=== PATIENT | female | born 1950 | race Caucasian/White ===

== ENCOUNTER 2021-10-12 10:37 | Inpatient (IN) ==
[2021-10-12] MEDS ORDERED: IOPAMIDOL 100 ML BOTTLE IV ONE (10:38)
[2021-10-12] MEDS ORDERED: ASPIRIN 81 MG TAB.CHEW CHEWED ONE (11:14)
--- NOTE | 2021-10-12 11:21 | Emergency Department Note ---
Weakness HPI General Chief complaint: Weakness Stated complaint: Pneumonia Time Seen by Provider: 10/12/21 10:59 Source: patient Mode of arrival: wheelchair History of Present Illness HPI Narrative: 71-year-old female, smoker although she says she quit 1 week ago, PMH of COPD, [place] x2 with the stent placement about 4 to 5 years ago, presents with weakness, shortness of breath, cough, increased sweating with decreased appetite for about a week. Patient says that she also had chest pain last night but do not have pain right now. Patient was seen at outpatient clinic yesterday and was diagnosed to have pneumonia and she was given two antibiotics but without much improvement. EKG showed ST elevations in 2 3 aVF with Q waves EKG read it as old however communications director Dr. Alcantara was consulted for looked at the EKG and advised to wait for troponin. Related Data Home Medications Medication Instructions Recorded Confirmed aspirin 81 mg tablet,delayed 81 mg PO QDAY 10/15/19 10/12/21 release paroxetine HCl 30 mg tablet (Paxil) 30 mg PO QHS 10/15/19 10/12/21 omeprazole 40 mg capsule,delayed 40 mg PO QDAY 05/11/20 10/12/21 release amoxicillin 875 mg-potassium 1 tab PO BID 10/12/21 10/12/21 clavulanate 125 mg tablet azithromycin 250 mg tablet 1 tab PO DAILY 10/12/21 10/12/21 nortriptyline 10 mg capsule 1 cap PO HS 10/12/21 10/12/21 Allergies Allergy/AdvReac Type Severity Reaction Status Date / Time prednisone Allergy Intermediate Verified 10/12/21 10:44 Review of Systems ROS ROS Narrative: Narrative: All systems ED: reviewed and negative except as stated. PFSH Narrative Patient History Narrative: Narrative: Medical/Surgical/Family History All Active Problems (Updated 10/12/21 @ 16:21 by Saleem Samuels MD) Chest pain (Acute) Acute exacerbation of chronic obstructive pulmonary disease (Acute) Pneumonia (Acute) Acute hyponatremia (Acute) Social History Smoking Status: Current every day smoker Exam Narrative Narrative: Narrative: General General appearance: Present alert and in no apparent distress Eye Eye: Present normal appearance Respiratory Respiratory: Present other (Bilateral inspiratory and expiratory wheezes) Adbominal Abdominal: Present soft and normal bowel sounds; Absent tenderness or organomegaly Extremities Extremities: Absent pedal edema, cyanosis or clubbing Neurological Neurological: Present alert and oriented X3 Psychiatric Psychiatric: Present normal affect Course Course Course Narrative: CBC, CMP, UA, troponin, lactate, chest x-ray and COVID test was obtained. Television Servicer Dr. Alcantara was consulted as above. Patient was given aspirin 325 mg, DuoNeb and Rocephin IV 1 g. Solu-Medrol was not given as patient is allergic to prednisone. Patients Troponin is negative x 2. Patient needs to be seen by her communications director as outpatient as per Dr. Sohre. Patient is Covid negative, Her WBC count , Na 128. CXR c/w pneumonia without change. Patient recevied 1000 ml IV Saline, Rocephin 1 GM IV, Patient continues to breath at high rate. Still has bilateral wheezing. Will admit patient to hospital to continue Nebulizer and IV antibiotics Vital Signs Vital signs: Vital Signs Temperature 97.3 F 10/12/21 10:39 Pulse Rate 75 10/12/21 10:39 Respiratory Rate 18 10/12/21 10:39 Blood Pressure 128/73 10/12/21 10:39 Pulse Oximetry (%) 97 10/12/21 10:39 Oxygen Delivery Method 10/12/21 10:39 Temperature 98.2 F 10/13/21 07:30 Pulse Rate 96 H 10/13/21 07:30 Respiratory Rate 18 10/13/21 07:30 Blood Pressure 132/76 10/13/21 07:30 Pulse Oximetry (%) 90 10/13/21 07:30 Oxygen Delivery Method 10/13/21 07:30 Oxygen Flow Rate (L/min) 2.5 10/13/21 07:30 MDM MDM Narrative Medical decision making narrative: Narrative: Lab Data Result diagrams: 10/13/21 06:35 10/12/21 11:23 Labs: Lab Results 10/12/21 10/12/21 10/12/21 Range/Units 11:23 11:23 11:23 WBC 14.9 H (4.5-11.0) K/mcL RBC 4.43 (3.59-5.38) M/mcL Hgb 13.1 (11.2-15.7) g/dL Hct 38.4 (34.1-44.9) % MCV 86.7 (80.0-100.0) fL MCH 29.6 (26.0-34.0) pg MCHC 34.1 (31.0-36.0) g/dL RDW 12.3 (11.5-14.5) % Plt Count 605 H (140-440) K/mcL MPV 10.2 (7.4-10.4) fL Seg Neutrophils % 74 (38-78) % Band Neutrophils % 2 (0-10) % Lymphocytes % 8 L (15-49) % Monocytes % (Manual) 14 H (1-12) % Eosinophils % (Manual) Basophils % (Manual) Metamyelocytes % Myelocytes % Promyelocytes % WBC Morphology Vacuolated Neuts Plasmacytoid Lymphs Reactive Lymphocytes 2 (0-2) % Blast Cells Plasma Cells Other Cell Type Toxic Granulation Dohle Bodies Platelet Estimate Increased A (Normal) RBC Morphology Normal (Normal) Polychromasia Hypochromasia Poikilocytosis Basophilic Stippling Anisocytosis Microcytosis Macrocytosis Spherocytes Pappenheimer Bodies Target Cells Tear Drop Cells Ovalocytes Stomatocytes Helmet Cells Andrea-Roseau Bodies Dontrell Cells Acanthocytes (Spur) RBC Fragments POC VBG pH (7.32-7.42) POC VBG pCO2 at Temp (41-51) POC VBG pO2 (25-40) POC VBG HCO3 (24-28) POC VBG Total CO2 (25-29) POC Venous O2 Sat (40-70) POC VBG Base Excess (-2-2) VBG Lactic Acid (0.5-2) Sodium 128 L (133-145) mmol/L Potassium 3.7 (3.3-5.1) mmol/L Chloride 88 L (96-108) mmol/L Carbon Dioxide 25 (22-30) mmol/L Anion Gap 15.0 (8.0-16.0) BUN 8 (8-23) mg/dL Creatinine 0.5 L (0.6-1.1) mg/dL GFR Calculation 97 Glucose 144 H (70-105) mg/dL Calcium 9.7 (8.6-10.4) mg/dL Magnesium 1.9 (1.6-2.5) mg/dL Total Bilirubin 0.8 (0.1-1.0) mg/dL AST 15 (<32) U/L ALT 10 (<40) U/L Alkaline Phosphatase 229 H (39-117) U/L NT-Pro-B Natriuret Pep (<125.0) pg/mL Total Protein 7.2 (5.9-8.4) gm/dL Albumin 3.1 L (3.2-5.2) gm/dL Globulin 4.1 H (2.2-3.7) gm/dL Albumin/Globulin Ratio 0.8 L (1.0-2.3) Triglycerides (<150) mg/dL Cholesterol (<200) mg/dL LDL Cholesterol, Calc (<100) mg/dL Non-HDL Cholesterol (<130) mg/dL HDL Cholesterol (>40) mg/dL Procalcitonin (<0.10) ng/mL POC Troponin I (0.02-0.08) 10/12/21 10/12/21 10/12/21 Range/Units 11:23 11:23 11:23 WBC (4.5-11.0) K/mcL RBC (3.59-5.38) M/mcL Hgb (11.2-15.7) g/dL Hct (34.1-44.9) % MCV (80.0-100.0) fL MCH (26.0-34.0) pg MCHC (31.0-36.0) g/dL RDW (11.5-14.5) % Plt Count (140-440) K/mcL MPV (7.4-10.4) fL Seg Neutrophils % TNP (38-78) % Band Neutrophils % TNP (0-10) % Lymphocytes % TNP (15-49) % Monocytes % (Manual) TNP (1-12) % Eosinophils % (Manual) TNP Basophils % (Manual) TNP Metamyelocytes % TNP Myelocytes % TNP Promyelocytes % TNP WBC Morphology TNP Vacuolated Neuts TNP Plasmacytoid Lymphs TNP Reactive Lymphocytes TNP (0-2) % Blast Cells TNP Plasma Cells TNP Other Cell Type TNP Toxic Granulation TNP Dohle Bodies TNP Platelet Estimate TNP (Normal) RBC Morphology TNP (Normal) Polychromasia TNP Hypochromasia TNP Poikilocytosis TNP Basophilic Stippling TNP Anisocytosis TNP Microcytosis TNP Macrocytosis TNP Spherocytes TNP Pappenheimer Bodies TNP Target Cells TNP Tear Drop Cells TNP Ovalocytes TNP Stomatocytes TNP Helmet Cells TNP Andrea-Roseau Bodies TNP Wyocena Cells TNP Acanthocytes (Spur) TNP RBC Fragments TNP POC VBG pH (7.32-7.42) POC VBG pCO2 at Temp (41-51) POC VBG pO2 (25-40) POC VBG HCO3 (24-28) POC VBG Total CO2 (25-29) POC Venous O2 Sat (40-70) POC VBG Base Excess (-2-2) VBG Lactic Acid (0.5-2) Sodium (133-145) mmol/L Potassium (3.3-5.1) mmol/L Chloride (96-108) mmol/L Carbon Dioxide (22-30) mmol/L Anion Gap (8.0-16.0) BUN (8-23) mg/dL Creatinine (0.6-1.1) mg/dL GFR Calculation Glucose (70-105) mg/dL Calcium (8.6-10.4) mg/dL Magnesium (1.6-2.5) mg/dL Total Bilirubin (0.1-1.0) mg/dL AST (<32) U/L ALT (<40) U/L Alkaline Phosphatase (39-117) U/L NT-Pro-B Natriuret Pep 1675.0 H (<125.0) pg/mL Total Protein (5.9-8.4) gm/dL Albumin (3.2-5.2) gm/dL Globulin (2.2-3.7) gm/dL Albumin/Globulin Ratio (1.0-2.3) Triglycerides (<150) mg/dL Cholesterol (<200) mg/dL LDL Cholesterol, Calc (<100) mg/dL Non-HDL Cholesterol (<130) mg/dL HDL Cholesterol (>40) mg/dL Procalcitonin 0.25 H (<0.10) ng/mL POC Troponin I (0.02-0.08) 10/12/21 10/12/21 10/12/21 Range/Units 11:23 11:26 14:25 WBC (4.5-11.0) K/mcL RBC (3.59-5.38) M/mcL Hgb (11.2-15.7) g/dL Hct (34.1-44.9) % MCV (80.0-100.0) fL MCH (26.0-34.0) pg MCHC (31.0-36.0) g/dL RDW (11.5-14.5) % Plt Count (140-440) K/mcL MPV (7.4-10.4) fL Seg Neutrophils % (38-78) % Band Neutrophils % (0-10) % Lymphocytes % (15-49) % Monocytes % (Manual) (1-12) % Eosinophils % (Manual) Basophils % (Manual) Metamyelocytes % Myelocytes % Promyelocytes % WBC Morphology Vacuolated Neuts Plasmacytoid Lymphs Reactive Lymphocytes (0-2) % Blast Cells Plasma Cells Other Cell Type Toxic Granulation Dohle Bodies Platelet Estimate (Normal) RBC Morphology (Normal) Polychromasia Hypochromasia Poikilocytosis Basophilic Stippling Anisocytosis Microcytosis Macrocytosis Spherocytes Pappenheimer Bodies Target Cells Tear Drop Cells Ovalocytes Stomatocytes Helmet Cells Andrea-Roseau Bodies Dontrell Cells Acanthocytes (Spur) RBC Fragments POC VBG pH 7.40 (7.32-7.42) POC VBG pCO2 at Temp 48.4 (41-51) POC VBG pO2 70 H (25-40) POC VBG HCO3 30.0 H (24-28) POC VBG Total CO2 31.0 H (25-29) POC Venous O2 Sat 94.0 H (40-70) POC VBG Base Excess 5.0 H* (-2-2) VBG Lactic Acid 0.7 (0.5-2) Sodium (133-145) mmol/L Potassium (3.3-5.1) mmol/L Chloride (96-108) mmol/L Carbon Dioxide (22-30) mmol/L Anion Gap (8.0-16.0) BUN (8-23) mg/dL Creatinine (0.6-1.1) mg/dL GFR Calculation Glucose (70-105) mg/dL Calcium (8.6-10.4) mg/dL Magnesium (1.6-2.5) mg/dL Total Bilirubin (0.1-1.0) mg/dL AST (<32) U/L ALT (<40) U/L Alkaline Phosphatase (39-117) U/L NT-Pro-B Natriuret Pep (<125.0) pg/mL Total Protein (5.9-8.4) gm/dL Albumin (3.2-5.2) gm/dL Globulin (2.2-3.7) gm/dL Albumin/Globulin Ratio (1.0-2.3) Triglycerides 75 (<150) mg/dL Cholesterol 164 (<200) mg/dL LDL Cholesterol, Calc 102 H (<100) mg/dL Non-HDL Cholesterol 116 (<130) mg/dL HDL Cholesterol 48 (>40) mg/dL Procalcitonin (<0.10) ng/mL POC Troponin I 0.03 (0.02-0.08) 10/12/21 Range/Units 14:35 WBC (4.5-11.0) K/mcL RBC (3.59-5.38) M/mcL Hgb (11.2-15.7) g/dL Hct (34.1-44.9) % MCV (80.0-100.0) fL MCH (26.0-34.0) pg MCHC (31.0-36.0) g/dL RDW (11.5-14.5) % Plt Count (140-440) K/mcL MPV (7.4-10.4) fL Seg Neutrophils % (38-78) % Band Neutrophils % (0-10) % Lymphocytes % (15-49) % Monocytes % (Manual) (1-12) % Eosinophils % (Manual) Basophils % (Manual) Metamyelocytes % Myelocytes % Promyelocytes % WBC Morphology Vacuolated Neuts Plasmacytoid Lymphs Reactive Lymphocytes (0-2) % Blast Cells Plasma Cells Other Cell Type Toxic Granulation Dohle Bodies Platelet Estimate (Normal) RBC Morphology (Normal) Polychromasia Hypochromasia Poikilocytosis Basophilic Stippling Anisocytosis Microcytosis Macrocytosis Spherocytes Pappenheimer Bodies Target Cells Tear Drop Cells Ovalocytes Stomatocytes Helmet Cells Andrea-Roseau Bodies Dontrell Cells Acanthocytes (Spur) RBC Fragments POC VBG pH (7.32-7.42) POC VBG pCO2 at Temp (41-51) POC VBG pO2 (25-40) POC VBG HCO3 (24-28) POC VBG Total CO2 (25-29) POC Venous O2 Sat (40-70) POC VBG Base Excess (-2-2) VBG Lactic Acid (0.5-2) Sodium (133-145) mmol/L Potassium (3.3-5.1) mmol/L Chloride (96-108) mmol/L Carbon Dioxide (22-30) mmol/L Anion Gap (8.0-16.0) BUN (8-23) mg/dL Creatinine (0.6-1.1) mg/dL GFR Calculation Glucose (70-105) mg/dL Calcium (8.6-10.4) mg/dL Magnesium (1.6-2.5) mg/dL Total Bilirubin (0.1-1.0) mg/dL AST (<32) U/L ALT (<40) U/L Alkaline Phosphatase (39-117) U/L NT-Pro-B Natriuret Pep (<125.0) pg/mL Total Protein (5.9-8.4) gm/dL Albumin (3.2-5.2) gm/dL Globulin (2.2-3.7) gm/dL Albumin/Globulin Ratio (1.0-2.3) Triglycerides (<150) mg/dL Cholesterol (<200) mg/dL LDL Cholesterol, Calc (<100) mg/dL Non-HDL Cholesterol (<130) mg/dL HDL Cholesterol (>40) mg/dL Procalcitonin (<0.10) ng/mL POC Troponin I 0.02 (0.02-0.08) ED POC Tests ED POC Tests: [facility] - SARS Antigen Negative Discharge Plan Patient/Caregiver Discharge Instructions Pt seen by VOIP NETWORK TECHNICIAN/PA only: No Clinical Impression: Chest pain, Acute exacerbation of chronic obstructive pulmonary disease, Pneumonia, Acute hyponatremia Patient Disposition: Xfer As Inpt ([facility]) Discharge Date/Time: 10/12/21 20:28
[2021-10-12] MEDS ORDERED: IPRATROPIUM/ALBUTEROL 3 ML AMPUL.NEB NEB ONE (11:31)
[2021-10-12] MEDS ORDERED: cefTRIAXone 1 GM VIAL IV ONE (11:31)
[2021-10-12 12:00] LABS: Hematocrit 38.4 % (34.1-44.9); Hemoglobin 13.1 g/dL (11.2-15.7); Mean Cell Volume 86.7 fL (80.0-100.0); Mean Corpuscular HGB Conc 34.1 g/dL (31.0-36.0); Mean Platelet Volume 10.2 fL (7.4-10.4); Platelet Count 605 K/mcL (140-440); RBC 4.43 M/mcL (3.59-5.38); Red Cell Distribution Width 12.3 % (11.5-14.5); WBC 14.9 K/mcL (4.5-11.0)
--- NOTE | 2021-10-12 12:10 | XRay Report ---
INDICATION: chest pain TECHNIQUE: AP portable semiupright chest x-ray COMPARISON: Previous examination dated 10/11/2021. This was performed at an outside dictation FINDINGS: Lungs:There is a focal right upper lobe pulmonary parenchymal density. This appears to extend to the pleural surface. This is unchanged since 10/11/2021. Neoplasm is possible. Chronic scarring or pneumonia are also possible. Chest CT scan is recommended. Interstitial markings are prominent and there are probable septal lines at the lung bases. There is peribronchial thickening. Findings are consistent with interstitial edema, worse since previous examination. Heart, vascular:Heart size is at the upper limits of normal considering AP positioning. Mediastinum, kyara:No mediastinal widening. No hilar mass Pleura:No pleural fluid. No pleural-based mass or calcification Skeletal:Negative. IMPRESSION: 1. Focal right upper lobe pulmonary parenchymal density. Appearance is unchanged since 10/11/2021 2. Prominent interstitial markings and appearance are consistent with probable interstitial edema. Clinical correlation follow-up radiograph is recommended Interpreted and Authenticated by: Emory Rivera 10/12/21
[2021-10-12 12:33] LABS: ALT/SGPT 10 U/L (<40); AST/SGOT 15 U/L (<32); Albumin 3.1 gm/dL (3.2-5.2); Albumin/Globulin Ratio 0.8 (1.0-2.3); Alkaline Phosphatase 229 U/L (39-117); Bilirubin,Total 0.8 mg/dL (0.1-1.0); Blood Urea Nitrogen 8 mg/dL (8-23); Calcium 9.7 mg/dL (8.6-10.4); Carbon Dioxide 25 mmol/L (22-30); Chloride 88 mmol/L (96-108); Globulin 4.1 gm/dL (2.2-3.7); Glomerular Filtration Rate 97; Glucose 144 mg/dL (70-105)
[2021-10-12] MEDS ORDERED: LORazepam 2 MG/ML VIAL IV ONE (14:03)
[2021-10-12 14:20] LABS: Band Neutrophils % 2 % (0-10); Lymphocytes % 8 % (15-49); Monocytes % (Manual) 14 % (1-12); Platelet Estimate INCREASED (Normal); RBC Morphology NORMAL (Normal); Reactive Lymphocytes 2 % (0-2); Segmented Neutrophils % 74 % (38-78)
[2021-10-12] MEDS ORDERED: ALBUTEROL SULFATE 5 MG/ML NEB SOLUTION BOTTLE NEB ONE (14:32)
[2021-10-12] MEDS ORDERED: 0.9 % SODIUM CHLORIDE 500 ML IV ONE (16:14)
--- NOTE | 2021-10-12 17:26 | Internal Med History&Physical ---
HPI History of Present Illness Patient information: Note initiated : 10/12/21 at 5:15 pm Service Date, if different from initiated Date: [] Patient: Jessica Briceño a 71 y/o F admitted on for Pneumonia. Chief Complaint: [] History of present illness: Ms. Briceño is a 71 year old F Resents the ED with increasing shortness of breath and cough. Patient found to be 85% in the ED on room air. Patient states that Friday she started feeling ill and had was sick to her stomach. She denies recent travel or sick contacts. Over the next couple days she developed a productive cough of yellow sputum and shortness of breath. She been becoming increasingly weak and fatigued and decreasing appetite. She has had fevers and chills. She went to minor care and got several several antibiotics yesterday and has had a dose of each it sounds like. But today she has not felt any better treatments for severely short of breath and coughing thus came to the ED. Patient did have an abnormal EKG with some ST elevation in the inferior leads but had no chest pain. ER physician discussed case with manager battery at [facility] based on the history did not have concerns long as the troponins were unremarkable and troponins were checked in the ED which were negative x2. Looking at old notes she has had some inferior lead ST changes in the past infectious had stents x2. Patient continues to smoke I spent some time counseling her on this. Patient has a history of COPD but does not use inhalers and has never been on oxygen. In the ED a chest x-ray was performed which showed a right upper lobe infiltrate some prominent interstitial markings that were concerning for interstitial edema. The right upper lobe parenchymal density is concerning for either scarring pneumonia or possibly neoplasm and CT chest was recommended which has been ordered. Patient feels wheezy as well. He has diaphoresis at times. Her sister notes that she has been quite wheezy on the phone over the past month. Her sister also notes that patient stopped going on walks with her recently because of shortness of breath. She is found to have a leukocytosis in the ED with a hyponatremia. Lactic acid was unremarkable. Patient has prednisone listed as an allergy and asked her about this and she said some years ago she had headaches and they gave prednisone to her and she had some facial swelling but denied any throat swelling or shortness of breath. Review of Systems: Pertinent positives as above denies headache/nausea/vomiting/chest or abdominal pain/diarrhea. Remaining 10 point review of system reviewed negative PFSH PFSH All Active Problems (Updated 10/12/21 @ 16:21 by Saleem Samuels MD) Chest pain (Acute) Acute exacerbation of chronic obstructive pulmonary disease (Acute) Pneumonia (Acute) Acute hyponatremia (Acute) MEDS/ALLERGIES Home Medications and Allergies Home Medications Medication Instructions Recorded Confirmed Type aspirin 81 mg tablet,delayed 81 mg PO QDAY 10/15/19 05/11/20 History release paroxetine HCl 30 mg tablet (Paxil) 30 mg PO QDAY 10/15/19 05/11/20 History omeprazole 40 mg capsule,delayed 40 mg PO QDAY 05/11/20 05/11/20 History release Allergies Allergy/AdvReac Type Severity Reaction Status Date / Time prednisone Allergy Intermediate Verified 10/12/21 10:44 EXAM Constitutional Vitals: Temp Pulse Resp BP Pulse Ox O2 Del Method O2 Flow Rate 97.3 F 101 H 41 H 129/66 98 2 10/12/21 10:39 10/12/21 17:01 10/12/21 17:01 10/12/21 17:01 10/12/21 17:01 10/12/21 12:09 10/12/21 12:09 Exam: General: Alert, Awake, No acute Distress, frail appearing Eyes/N/T: EOMI, PERRL, dry MM Head/Neck: neck supple, normocephalic atraumatic CV: RRR, No murmurs, normal s1/s2 Pulm: wheezing/rhonchi/rales b/l Abd: soft, nontender, +BS x4 Ext: no clubbing/cyanosis/edema Neuro: Alert, no focal deficits, moves all extremities, CN 2-12 grossly intact, symmetrical strength b/l upper/lower, Skin: warm/dry DATA Data Completed and Pending Labs: Labs from last 24 hours 10/12/21 10/12/21 10/12/21 14:35 14:25 14:23 WBC RBC Hgb Hct MCV MCH MCHC RDW Plt Count MPV Seg Neutrophils % Band Neutrophils % Lymphocytes % Monocytes % (Manual) Reactive Lymphocytes Platelet Estimate RBC Morphology POC VBG pH 7.40 POC VBG pCO2 at Temp 48.4 POC VBG pO2 70 H POC VBG HCO3 30.0 H POC VBG Total CO2 31.0 H POC Venous O2 Sat 94.0 H POC VBG Base Excess 5.0 H* VBG Lactic Acid 0.7 Sodium Potassium Chloride Carbon Dioxide Anion Gap BUN Creatinine GFR Calculation Glucose Calcium Magnesium Total Bilirubin AST ALT Alkaline Phosphatase NT-Pro-B Natriuret Pep Total Protein Albumin Globulin Albumin/Globulin Ratio Procalcitonin POC Troponin I 0.02 Pending 10/12/21 10/12/21 10/12/21 11:26 11:23 11:23 WBC RBC Hgb Hct MCV MCH MCHC RDW Plt Count MPV Seg Neutrophils % Band Neutrophils % Lymphocytes % Monocytes % (Manual) Reactive Lymphocytes Platelet Estimate RBC Morphology POC VBG pH POC VBG pCO2 at Temp POC VBG pO2 POC VBG HCO3 POC VBG Total CO2 POC Venous O2 Sat POC VBG Base Excess VBG Lactic Acid Sodium Potassium Chloride Carbon Dioxide Anion Gap BUN Creatinine GFR Calculation Glucose Calcium Magnesium Total Bilirubin AST ALT Alkaline Phosphatase NT-Pro-B Natriuret Pep Pending Total Protein Albumin Globulin Albumin/Globulin Ratio Procalcitonin Pending POC Troponin I 0.03 10/12/21 10/12/21 10/12/21 11:23 11:23 11:23 WBC RBC Hgb Hct MCV MCH MCHC RDW Plt Count MPV Seg Neutrophils % Band Neutrophils % Lymphocytes % Monocytes % (Manual) Reactive Lymphocytes Platelet Estimate Pending RBC Morphology Pending POC VBG pH POC VBG pCO2 at Temp POC VBG pO2 POC VBG HCO3 POC VBG Total CO2 POC Venous O2 Sat POC VBG Base Excess VBG Lactic Acid Sodium 128 L Potassium 3.7 Chloride 88 L Carbon Dioxide 25 Anion Gap 15.0 BUN 8 Creatinine 0.5 L GFR Calculation 97 Glucose 144 H Calcium 9.7 Magnesium 1.9 Total Bilirubin 0.8 AST 15 ALT 10 Alkaline Phosphatase 229 H NT-Pro-B Natriuret Pep Total Protein 7.2 Albumin 3.1 L Globulin 4.1 H Albumin/Globulin Ratio 0.8 L Procalcitonin POC Troponin I 10/12/21 11:23 WBC 14.9 H RBC 4.43 Hgb 13.1 Hct 38.4 MCV 86.7 MCH 29.6 MCHC 34.1 RDW 12.3 Plt Count 605 H MPV 10.2 Seg Neutrophils % 74 Band Neutrophils % 2 Lymphocytes % 8 L Monocytes % (Manual) 14 H Reactive Lymphocytes 2 Platelet Estimate Increased A RBC Morphology Normal POC VBG pH POC VBG pCO2 at Temp POC VBG pO2 POC VBG HCO3 POC VBG Total CO2 POC Venous O2 Sat POC VBG Base Excess VBG Lactic Acid Sodium Potassium Chloride Carbon Dioxide Anion Gap BUN Creatinine GFR Calculation Glucose Calcium Magnesium Total Bilirubin AST ALT Alkaline Phosphatase NT-Pro-B Natriuret Pep Total Protein Albumin Globulin Albumin/Globulin Ratio Procalcitonin POC Troponin I A/P Narrative A/P Narrative: A: *AECOPD (not on home O2): *PNA (RUL): *Acute hypoxic respiratory failure: 2/2 above *CAD w/stents: follows with [facility] cardio -no chest pain and negative troponins, abnormal ekg findings discussed with Dr. Alcantara manager battery *Tobacco abuse: *GERD: *Depression/anxiety: *Generalized weakness: P: -steroids(wean) > discussed with pt her reaction to prednisone in past (no throat swelling or dyspnea), willing to try solumedrol under supervison -nebs, IS/Acapella, RT -Wean O2 able -CT chest to further delineate right upper lobe density -Abx, pending SC -rvp/myco, r/o cardiac component given cxr findings, check BNP, consider echo -cont ASA, start statin(do not see on home med list, but old cardio notes show simvistatin and bisoprolol) -pt/ot -Prescribe rescue inhalers upon d/c -Follow-up with pulmonology outpatient for COPD evaluation PFTs -Follow-up with cardiology outpatient -Smoking cessation counseling >3 minutes -ppx: lovenox DNR Time Spent With Patient Time: Total time spent is greater than 50% in coordination of care (as documented) at patient's floor/unit and/or counseling patient: Total time spent with greater than 50% in coordination of care (as documented) at patient's floor/unit and/or counseling patient:: 50 - 70 minutes
--- NOTE | 2021-10-12 18:12 | Cat Scan Report ---
INDICATION: abnormal chest xray, COMPARISON: Previous chest x-rays dated 10/12/2021, 10/11/2021 TECHNIQUE: Axial contrast enhanced images through the chest. Sagittally and coronally reformatted images. MIP reformatted images. 65ml Isovue 370 injected intravenously. FINDINGS: Lungs:Extensive abnormality within both lungs. There is a spiculated masslike density in the right lung apex. This measures 15 mm. There is may be parenchymal scarring but in a patient with smoking history malignancy is possible. There is extensive tree-in-bud infiltrate. This is present throughout the right lung. This is present in the left lung as well, predominantly in the left upper lobe. Tree-in-bud infiltrate is a nonspecific pattern representing bronchiolar obstruction and typically associated with infection. There are multiple subpleural and pleural-based areas of consolidation within both lungs. Findings are nonspecific. Infection, including mycobacterium should be considered. Eosinophilic pneumonia, organizing pneumonia and hypersensitivity pneumonia are in the differential diagnosis. There is no honeycombing. There is mild reticular abnormality. No significant traction bronchiectasis. Appearance is not typical of interstitial fibrosis. Mediastinum, vascular:Normal thoracic aorta. No thoracic aortic aneurysm or dissection. No pathologic mediastinal or hilar lymphadenopathy Pulmonary CTA was not performed. Main pulmonary artery, right pulmonary artery, left pulmonary artery are negative. No intraluminal filling defects. No lobar or segmental emboli are identified on this routine contrast enhanced CT scan. Heart:No cardiomegaly. No pericardial effusion. No significant coronary artery calcification Pleura:No significant pleural effusion. No pleural-based mass or calcification Axilla, supraclavicular regions, chest wall:No pathologic axillary or supraclavicular adenopathy. Musculoskeletal:No thoracic compression fracture or lytic lesion. No sternal or rib lesion Upper Abdomen:Negative IMPRESSION: 1. 15 mm spiculated mass in the right lung apex. Neoplasm is possible. 2. Extensive tree in bud infiltrate. There are subpleural areas of parenchymal consolidation. Infection including mycobacterium should be considered. Using the filled pneumonia, organizing pneumonia, and hypersensitivity pneumonia are in the differential diagnosis The exam was performed using radiation dose optimization techniques including, but not limited to, automated exposure control, adjustment of the mA and/or kV according to patient size and use of iterative reconstruction technique. Interpreted and Authenticated by: Emory Rivera 10/12/21
[2021-10-12] MEDS ORDERED: IPRATROPIUM/ALBUTEROL 3 ML AMPUL.NEB NEB PRN (20:36)
[2021-10-12] MEDS ORDERED: AZITHROMYCIN 500 MG in DEXTROSE 5% IN WATER 250 ML IV SCH (20:36)
[2021-10-12] MEDS ORDERED: SENNOSIDES 1 TABLET PO PRN (20:36)
[2021-10-12] MEDS ORDERED: MAGNESIUM SULFATE 2 GM/50 ML BAG IV PRN (20:36)
[2021-10-12] MEDS ORDERED: POLYETHYLENE GLYCOL 3350 17 GM PACKET PO PRN (20:36)
[2021-10-12] MEDS ORDERED: POTASSIUM CHLORIDE 40 MEQ in DEXTROSE 5% IN WATER 500 ML IV PRN (20:36)
[2021-10-12] MEDS ORDERED: POTASSIUM CHLORIDE 20 MEQ TABLET PO PRN ×2 (20:36)
[2021-10-12] MEDS ORDERED: ONDANSETRON 4 MG/2 ML VIAL IV PRN (20:36)
[2021-10-12] MEDS ORDERED: ACETAMINOPHEN 325 MG TABLET PO PRN (20:36)
[2021-10-12] MEDS ORDERED: cefTRIAXone 1 GM VIAL IV SCH (20:45)
[2021-10-12] MEDS: BUDESONIDE 0.5 MG/2 ML AMPUL.NEB NEB SCH (21:10)
[2021-10-12] MEDS: IPRATROPIUM/ALBUTEROL 3 ML AMPUL.NEB NEB SCH (21:10)
[2021-10-12 21:30] LABS: HDL Cholesterol 48 mg/dL (>40); LDL Cholesterol,Calculated 102 mg/dL (<100); Non-HDL Cholesterol 116 mg/dL (<130); Triglycerides 75 mg/dL (<150)
[2021-10-13] MEDS: DOCUSATE SODIUM 100 MG CAPSULE PO SCH ×3 (00:08→20:55)
[2021-10-13] MEDS: methylPREDNISolone SOD SUCC 125 MG/2 ML VIAL IV SCH ×2 (00:09→08:05)
[2021-10-13] MEDS: ATORVASTATIN 40 MG TABLET PO SCH ×2 (00:09→20:56)
[2021-10-13] MEDS: 0.9 % SODIUM CHLORIDE 10 ML SYRINGE IV SCH ×4 (00:10→21:06)
[2021-10-13 01:06] LABS: Amphetamine Screen,Urine None detected; Barbiturate Screen,Urine None detected; Benzodiazepines Screen,Urine None detected; Cannabinoid Screen,Urine None detected; Cocaine Screen,Urine None detected; Opiate Screen,Urine None detected; Oxycodone, Urine Screen None detected; Phencyclidine Screen,Urine None detected
[2021-10-13] MEDS: IPRATROPIUM/ALBUTEROL 3 ML AMPUL.NEB NEB SCH ×4 (01:29→18:43)
--- NOTE | 2021-10-13 07:40 | Internal Med Progress Note ---
SUBJECTIVE Subjective Patient information: Note initiated : 10/13/21 at 7:33 am Service Date, if different from initiated Date: [] Patient: Jessica Briceño a 71 y/o F admitted on 10/12/21 for Pneumonia. Chief Complaint: [] Interval history: History of present illness: Ms. Briceño is a 71 year old F Resents the ED with increasing shortness of breath and cough. Patient found to be 85% in the ED on room air. Patient states that Friday she started feeling ill and had was sick to her stomach. She denies recent travel or sick contacts. Over the next couple days she developed a productive cough of yellow sputum and shortness of breath. She been becoming increasingly weak and fatigued and decreasing appetite. She has had fevers and chills. She went to minor care and got several several antibiotics yesterday and has had a dose of each it sounds like. But today she has not felt any better treatments for severely short of breath and coughing thus came to the ED. Patient did have an abnormal EKG with some ST elevation in the inferior leads but had no chest pain. ER physician discussed case with hand tire trimmer at [facility] based on the history did not have concerns long as the troponins were unremarkable and troponins were checked in the ED which were negative x2. Looking at old notes she has had some inferior lead ST changes in the past infectious had stents x2. Patient continues to smoke I spent some time counseling her on this. Patient has a history of COPD but does not use inhalers and has never been on oxygen. In the ED a chest x-ray was performed which showed a right upper lobe infiltrate some prominent interstitial markings that were concerning for interstitial edema. The right upper lobe parenchymal density is concerning for either scarring pneumonia or possibly neoplasm and CT chest was recommended which has been ordered. Patient feels wheezy as well. He has diaphoresis at times. Her sister notes that she has been quite wheezy on the phone over the past month. Her sister also notes that patient stopped going on walks with her recently because of shortness of breath. She is found to have a leukocytosis in the ED with a hyponatremia. Lactic acid was unremarkable. Patient has prednisone listed as an allergy and asked her about this and she said some years ago she had headaches and they gave prednisone to her and she had some facial swelling but denied any throat swelling or shortness of breath. 10/13 Patient has continued cough and shortness of breath of the shortness of breath feels little better to her. Leukocytosis resolved today, pending manual differential. Sodium still low today. Review of Systems: denies headache/fever/chills/nausea/vomiting/chest or abdominal pain/diarrhea. Otherwise see above. Constitutional Vitals: Vital Signs Temp Pulse Resp BP Pulse Ox O2 Del Method O2 Flow Rate 98.0 F 110 H 18 93/71 94 2.5 10/12/21 23:52 10/12/21 23:52 10/12/21 23:52 10/12/21 23:52 10/12/21 23:52 10/12/21 23:52 10/12/21 23:52 Period Temp Pulse Resp BP Sys/Woody Pulse Ox O2 Del Method O2 Flow Rate Last 24 Hr 97 F-98.6 F 54-131 18-49 93-139/58-101 85-100 Nasal Cannula- Room Air 1.5-3 Intake and Output 10/12/21 10/13/21 10/13/21 21:59 05:59 13:59 Intake Total 500 650 Output Total 400 Balance 500 250 Weight 58.06 kg Intake & Output: Intake & Output 10/12/21 10/13/21 10/13/21 21:59 05:59 13:59 Intake Total 500 650 Output Total 400 Balance 500 250 Weight 58.06 kg Intake: IV 500 250 Sodium Chloride 0.9% 500 ml @ 500 Wide Open IV B[facility] Rx#: [id number] Zithromax 500 mg In Dextrose 5% 250 in Water 250 ml @ 250 mls/hr IV Q24H [facility] Rx#:[id number] Oral 400 Output: Void Amount 400 Other: Meal Nourishment/Supplement Percent of Meal Consumed 25% Feeding Ability Independent Nourishment/Supplement name eggsalad sandwich Urine Appearance Clear Clear Urine Color Tea Colored Tea Colored # Voids 1 # Bowel Movements 0 Exam: General: Alert, Awake, No acute Distress, frail appearing Eyes/N/T: EOMI, Head/Neck: neck supple, CV: RRR, No murmurs, Pulm: rhonchi b/l, mild wheezing Abd: soft, nontender, +BS x4 Ext: no clubbing/cyanosis/edema Neuro: Alert, no focal deficits, moves all extremities, Skin: warm/dry OBJ DATA Labs CBC & Chem 7: 10/13/21 06:35 10/13/21 06:35 Labs: Abnormal Lab Results 10/12/21 10/12/21 10/12/21 14:25 11:23 11:23 WBC Plt Count Lymphocytes % Monocytes % (Manual) Platelet Estimate POC VBG pO2 70 H POC VBG HCO3 30.0 H POC VBG Total CO2 31.0 H POC Venous O2 Sat 94.0 H POC VBG Base Excess 5.0 H* Sodium Chloride Creatinine Glucose Alkaline Phosphatase NT-Pro-B Natriuret Pep Albumin Globulin Albumin/Globulin Ratio LDL Cholesterol, Calc 102 H Procalcitonin 0.25 H 10/12/21 10/12/21 10/12/21 11:23 11:23 11:23 WBC 14.9 H Plt Count 605 H Lymphocytes % 8 L Monocytes % (Manual) 14 H Platelet Estimate Increased A POC VBG pO2 POC VBG HCO3 POC VBG Total CO2 POC Venous O2 Sat POC VBG Base Excess Sodium 128 L Chloride 88 L Creatinine 0.5 L Glucose 144 H Alkaline Phosphatase 229 H NT-Pro-B Natriuret Pep 1675.0 H Albumin 3.1 L Globulin 4.1 H Albumin/Globulin Ratio 0.8 L LDL Cholesterol, Calc Procalcitonin Meds: Medications Acetaminophen (Acetaminophen 325 Mg Tablet) 650 mg PO Q6HP PRN; Protocol PRN Reason: Per Pain Protocol/Fever > 101 Albuterol/Ipratropium (Ipratropium/Albuterol 3 Ml Ampul.Neb) 3 ml NEB Q6HRT [facility] Last Admin: 10/13/21 01:29 Dose: 3 ml Albuterol/Ipratropium (Ipratropium/Albuterol 3 Ml Ampul.Neb) 3 ml NEB Q4HP PRN PRN Reason: Shortness Of Breath Aspirin (Aspirin 81 Mg Tab.Chew) 81 mg PO DAILY [facility] Atorvastatin Calcium (Atorvastatin 40 Mg Tablet) 40 mg PO HS [facility] Last Admin: 10/13/21 00:09 Dose: 40 mg Bisoprolol Fumarate (Bisoprolol 5 Mg Tablet) 2.5 mg PO DAILY [facility] Budesonide (Budesonide 0.5 Mg/2 Ml Ampul.Neb) 0.5 mg NEB Q12 [facility] Last Admin: 10/12/21 21:10 Dose: 0.5 mg Docusate Sodium (Docusate Sodium 100 Mg Capsule) 100 mg PO BID [facility] Last Admin: 10/13/21 00:08 Dose: 100 mg Enoxaparin Sodium (Enoxaparin 40 Mg/0.4 Ml Syringe) 40 mg SQ DAILY [facility] Potassium Chloride 40 meq/ (Dextrose) 520 mls @ 130 mls/hr IV UD PRN PRN Reason: Potassium < 3 Magnesium Sulfate (Magnesium Sulfate) 2 gm in 50 mls @ 50 mls/hr IV UD PRN PRN Reason: Magnesium </= 1.6 Ceftriaxone Sodium 2 gm/ (Dextrose) 50 mls @ 100 mls/hr IV Q24H [facility]; Protocol Azithromycin 500 mg/ Dextrose 250 mls @ 250 mls/hr IV Q24H [facility]; Protocol Stop: 10/14/21 09:59 Methylprednisolone Sodium Succinate (Methylprednisolone Sod Succ 125 Mg/2 Ml Vial) 62.5 mg IV Q12 [facility] Last Admin: 10/13/21 00:09 Dose: 62.5 mg Nortriptyline HCl (Nortriptyline 10 Mg Capsule) 10 mg PO HS [facility] Ondansetron HCl (Ondansetron 4 Mg/2 Ml Vial) 4 mg IV Q4HP PRN PRN Reason: Nausea And Vomiting Pantoprazole Sodium (Pantoprazole 40 Mg Tablet) 40 mg PO QAMAC RUKHSANA Paroxetine HCl (Paroxetine 20 Mg Tablet) 30 mg PO QHS [facility] Polyethylene Glycol (Polyethylene Glycol 3350 17 Gm Packet) 17 gm PO DAILYP PRN PRN Reason: Constipation Potassium Chloride (Potassium Chloride 20 Meq Tablet) 40 meq PO UD PRN PRN Reason: Potssium is 3-3.5 Potassium Chloride (Potassium Chloride 20 Meq Tablet) 40 meq PO UD PRN PRN Reason: Potassium < 3 Senna (Sennosides 1 Tablet) 2 tab PO DAILYP PRN PRN Reason: Constipation Sodium Chloride (0.9 % Sodium Chloride 10 Ml Syringe) 10 ml IV Q8 [facility] Last Admin: 10/13/21 04:37 Dose: 10 ml A/P Narrative A/P Narrative: A: *AECOPD (not on home O2)/fibrosis: -rvp neg *PNA (RUL): *Acute hypoxic respiratory failure: 2/2 above -1-3L NC *spiculated mass RUL on Chest CT, 15mm, subpleural areas of parenchymal consolidation: *CAD w/stents: [facility] -no chest pain and negative troponins, abnormal ekg ST findings discussed with Dr. Alcantara (hand tire trimmer) from ED, who had no concerns given negative troponins and pt without chest pain *Tobacco abuse: *GERD: *Depression/anxiety: *Generalized weakness: *Hypotnatremia: P: -steroids(wean), tolerated solumedrol w/o adverse reaction -nebs, IS/Acapella, RT -Wean O2 able -Abx, pending SC. mrsa screen neg -myco/fungal -discussed with rads regarding possible ct-guided biopsy of RUL lesion, given the other extensive lung findings it is recommended to follow up with pulmonology first and defer w/o to such specialist. -cont ASA, start statin(do not see on home med list, but old cardio notes show simvistatin and bisoprolol) -pt/ot -Prescribe rescue inhalers upon d/c -Follow-up with pulmonology outpatient for COPD evaluation PFTs -Follow-up with cardiology outpatient -Smoking cessation counseling minutes -ppx: lovenox DNR Time Spent With Patient Time: Total time spent is greater than 50% in coordination of care (as documented) at patient's floor/unit and/or counseling patient: Total time spent with greater than 50% in coordination of care (as documented) at patient's floor/unit and/or counseling patient:: 35 - 50 minutes QUALITY VTE Deep Vein Thrombosis/Pulmonary Embolism Present on Admission: No
[2021-10-13 07:57] LABS: Hematocrit 35.2 % (34.1-44.9); Hemoglobin 11.8 g/dL (11.2-15.7); Mean Cell Volume 89.1 fL (80.0-100.0); Mean Corpuscular HGB Conc 33.5 g/dL (31.0-36.0); Mean Platelet Volume 10.3 fL (7.4-10.4); Platelet Count 522 K/mcL (140-440); RBC 3.95 M/mcL (3.59-5.38); Red Cell Distribution Width 12.5 % (11.5-14.5); WBC 9.9 K/mcL (4.5-11.0)
[2021-10-13] MEDS: ENOXAPARIN 40 MG/0.4 ML SYRINGE SQ SCH (08:06)
[2021-10-13] MEDS: ASPIRIN 81 MG TAB.CHEW PO SCH (08:07)
[2021-10-13] MEDS: BISOPROLOL 5 MG TABLET PO SCH (08:07)
[2021-10-13] MEDS: PANTOPRAZOLE 40 MG TABLET PO SCH (08:07)
[2021-10-13] MEDS: BUDESONIDE 0.5 MG/2 ML AMPUL.NEB NEB SCH ×2 (08:21→18:44)
[2021-10-13 08:30] LABS: ALT/SGPT 10 U/L (<40); AST/SGOT 14 U/L (<32); Albumin 2.9 gm/dL (3.2-5.2); Albumin/Globulin Ratio 0.8 (1.0-2.3); Alkaline Phosphatase 209 U/L (39-117); Bilirubin,Direct 0.4 mg/dL (<0.3); Bilirubin,Total 0.5 mg/dL (0.1-1.0); Blood Urea Nitrogen 7 mg/dL (8-23); Calcium 9.5 mg/dL (8.6-10.4); Carbon Dioxide 30 mmol/L (22-30); Chloride 88 mmol/L (96-108); Globulin 3.5 gm/dL (2.2-3.7); Glomerular Filtration Rate 97; Glucose 146 mg/dL (70-105); Lactate Dehydrogenase 153 U/L (135-225); Phosphorous 2.7 mg/dL (2.5-4.5); Triglycerides 71 mg/dL (<150); Uric Acid 4.4 mg/dL (2.5-8.0)
[2021-10-13] MEDS ORDERED: ASPIRIN 81 MG TAB.CHEW PO SCH (09:00)
[2021-10-13] MEDS: cefTRIAXone 2 GM in DEXTROSE 5% IN WATER 50 ML IV SCH (09:00)
[2021-10-13 09:20] LABS: Band Neutrophils % 25 % (0-10); Lymphocytes % 3 % (15-49); Monocytes % (Manual) 3 % (1-12); Platelet Estimate INCREASED (Normal); RBC Morphology NORMAL (Normal); Segmented Neutrophils % 69 % (38-78)
[2021-10-13] MEDS: AZITHROMYCIN 500 MG in DEXTROSE 5% IN WATER 250 ML IV SCH (10:27)
[2021-10-13] MEDS: SODIUM CHLORIDE 1 GM TABLET PO SCH ×3 (10:38→20:56)
[2021-10-13] MEDS: PARoxetine 20 MG TABLET PO SCH (20:55)
[2021-10-13] MEDS: NORTRIPTYLINE 10 MG CAPSULE PO SCH (20:55)
[2021-10-13] MEDS ORDERED: methylPREDNISolone SOD SUCC 125 MG/2 ML VIAL IV SCH (21:00)
[2021-10-14] MEDS: IPRATROPIUM/ALBUTEROL 3 ML AMPUL.NEB NEB SCH ×5 (00:31→19:31)
[2021-10-14] MEDS: BUDESONIDE 0.5 MG/2 ML AMPUL.NEB NEB SCH ×3 (03:09→19:31)
[2021-10-14] MEDS: 0.9 % SODIUM CHLORIDE 10 ML SYRINGE IV SCH ×3 (05:50→21:13)
[2021-10-14 06:22] LABS: Hematocrit 35.5 % (34.1-44.9); Mean Corpuscular HGB Conc 33.8 g/dL (31.0-36.0); Mean Platelet Volume 9.9 fL (7.4-10.4); Platelet Count 627 K/mcL (140-440); RBC 3.99 M/mcL (3.59-5.38); Red Cell Distribution Width 12.4 % (11.5-14.5); WBC 19.4 K/mcL (4.5-11.0)
[2021-10-14 06:48] LABS: ALT/SGPT 17 U/L (<40); AST/SGOT 29 U/L (<32); Albumin 3.2 gm/dL (3.2-5.2); Albumin/Globulin Ratio 0.9 (1.0-2.3); Alkaline Phosphatase 223 U/L (39-117); Bilirubin,Direct < 0.2 mg/dL (0-0.3); Bilirubin,Total 0.3 mg/dL (0.1-1.0); Blood Urea Nitrogen 11 mg/dL (8-23); Calcium 9.7 mg/dL (8.6-10.4); Carbon Dioxide 32 mmol/L (22-30); Chloride 88 mmol/L (96-108); Globulin 3.6 gm/dL (2.2-3.7); Glomerular Filtration Rate 87; Glucose 134 mg/dL (70-105); Lactate Dehydrogenase 187 U/L (135-225); Triglycerides 82 mg/dL (<150); Uric Acid 4.3 mg/dL (2.5-8.0)
[2021-10-14] MEDS: PANTOPRAZOLE 40 MG TABLET PO SCH (07:02)
--- NOTE | 2021-10-14 07:38 | Internal Med Progress Note ---
SUBJECTIVE Subjective Patient information: Note initiated : 10/14/21 at 7:35 am Service Date, if different from initiated Date: [] Patient: Jessica Briceño a 71 y/o F admitted on 10/12/21 for Pneumonia. Chief Complaint: [] Interval history: History of present illness: Ms. Briceño is a 71 year old F Resents the ED with increasing shortness of breath and cough. Patient found to be 85% in the ED on room air. Patient states that Friday she started feeling ill and had was sick to her stomach. She denies recent travel or sick contacts. Over the next couple days she developed a productive cough of yellow sputum and shortness of breath. She been becoming increasingly weak and fatigued and decreasing appetite. She has had fevers and chills. She went to minor care and got several several antibiotics yesterday and has had a dose of each it sounds like. But today she has not felt any better treatments for severely short of breath and coughing thus came to the ED. Patient did have an abnormal EKG with some ST elevation in the inferior leads but had no chest pain. ER physician discussed case with wheel loader operator at [facility] based on the history did not have concerns long as the troponins were unremarkable and troponins were checked in the ED which were negative x2. Looking at old notes she has had some inferior lead ST changes in the past infectious had stents x2. Patient continues to smoke I spent some time counseling her on this. Patient has a history of COPD but does not use inhalers and has never been on oxygen. In the ED a chest x-ray was performed which showed a right upper lobe infiltrate some prominent interstitial markings that were concerning for interstitial edema. The right upper lobe parenchymal density is concerning for either scarring pneumonia or possibly neoplasm and CT chest was recommended which has been ordered. Patient feels wheezy as well. He has diaphoresis at times. Her sister notes that she has been quite wheezy on the phone over the past month. Her sister also notes that patient stopped going on walks with her recently because of shortness of breath. She is found to have a leukocytosis in the ED with a hyponatremia. Lactic acid was unremarkable. Patient has prednisone listed as an allergy and asked her about this and she said some years ago she had headaches and they gave prednisone to her and she had some facial swelling but denied any throat swelling or shortness of breath. 10/13 Patient has continued cough and shortness of breath of the shortness of breath feels little better to her. Leukocytosis resolved today, pending manual differential. Sodium still low today. 10/14 Patient feeling better today. Minimal cough. Denies shortness of breath at rest. She was on 1 L nasal cannula. She did have a bandemia yesterday and thus the reason for the likely leukocytosis today plus steroids as her bandemia improved quite a bit although still borderline upper reference avilez. However given the severe bandemia and worsening leukocytosis today and still requiring oxygen, we will follow-up 1 more night with labs and respiratory status, Review of Systems: denies headache/fever/chills/nausea/vomiting/chest or abdominal pain/diarrhea. Otherwise see above. Constitutional Vitals: Vital Signs Temp Pulse Resp BP Pulse Ox O2 Del Method O2 Flow Rate 98.2 F 78 16 126/66 96 1.5 10/14/21 07:02 10/14/21 07:02 10/14/21 07:02 10/14/21 07:02 10/14/21 07:02 10/14/21 07:02 10/14/21 07:02 Period Temp Pulse Resp BP Sys/Woody Pulse Ox O2 Del Method O2 Flow Rate Last 24 Hr 97.6 F-98.7 F 78-94 - 102-126/57-77 88-96 Nasal Cannula- Room Air 1.5-2.5 Intake and Output 10/13/21 10/14/21 10/14/21 21:59 05:59 13:59 Intake Total 1000 Output Total 400 Balance 600 Weight 58.468 kg Intake & Output: Intake & Output 10/13/21 10/14/21 10/14/21 21:59 05:59 13:59 Intake Total 1000 Output Total 400 Balance 600 Weight 58.468 kg Intake: Oral 1000 Output: Void Amount 400 Other: Meal Lunch Percent of Meal Consumed 100% Urine Appearance Clear Clear Urine Color Dark Yellow Straw # Voids 3 # Bowel Movements 0 Exam: General: Alert, Awake, No acute Distress, frail appearing Eyes/N/T: EOMI, Head/Neck: neck supple, CV: RRR, No murmurs, Pulm: rhonchi/rales b/l - mildly improved, occasional wheeze Abd: soft, nontender, +BS x4 Ext: no clubbing/cyanosis/edema Neuro: Alert, no focal deficits, moves all extremities, Skin: warm/dry OBJ DATA Labs CBC & Chem 7: 10/14/21 05:25 10/14/21 05:25 Labs: Abnormal Lab Results 10/14/21 10/14/21 10/13/21 05:25 05:25 06:35 WBC 19.4 H Plt Count 627 H Band Neutrophils % Lymphocytes % Monocytes % (Manual) Platelet Estimate POC VBG pO2 POC VBG HCO3 POC VBG Total CO2 POC Venous O2 Sat POC VBG Base Excess Sodium 131 L 129 L Chloride 88 L 88 L Carbon Dioxide 32 H BUN 7 L Creatinine 0.5 L Glucose 134 H 146 H Direct Bilirubin 0.4 H GGT 47 H 40 H Alkaline Phosphatase 223 H 209 H NT-Pro-B Natriuret Pep Albumin 2.9 L Globulin Albumin/Globulin Ratio 0.9 L 0.8 L LDL Cholesterol, Calc Procalcitonin 10/13/21 10/13/21 10/12/21 06:35 06:35 14:25 WBC Plt Count 522 H Band Neutrophils % 25 H Lymphocytes % 3 L Monocytes % (Manual) Platelet Estimate Increased A POC VBG pO2 70 H POC VBG HCO3 30.0 H POC VBG Total CO2 31.0 H POC Venous O2 Sat 94.0 H POC VBG Base Excess 5.0 H* Sodium Chloride Carbon Dioxide BUN Creatinine Glucose Direct Bilirubin GGT Alkaline Phosphatase NT-Pro-B Natriuret Pep Albumin Globulin Albumin/Globulin Ratio LDL Cholesterol, Calc Procalcitonin 0.22 H 10/12/21 10/12/21 10/12/21 11:23 11:23 11:23 WBC Plt Count Band Neutrophils % Lymphocytes % Monocytes % (Manual) Platelet Estimate POC VBG pO2 POC VBG HCO3 POC VBG Total CO2 POC Venous O2 Sat POC VBG Base Excess Sodium Chloride Carbon Dioxide BUN Creatinine Glucose Direct Bilirubin GGT Alkaline Phosphatase NT-Pro-B Natriuret Pep 1675.0 H Albumin Globulin Albumin/Globulin Ratio LDL Cholesterol, Calc 102 H Procalcitonin 0.25 H 10/12/21 10/12/21 11:23 11:23 WBC 14.9 H Plt Count 605 H Band Neutrophils % Lymphocytes % 8 L Monocytes % (Manual) 14 H Platelet Estimate Increased A POC VBG pO2 POC VBG HCO3 POC VBG Total CO2 POC Venous O2 Sat POC VBG Base Excess Sodium 128 L Chloride 88 L Carbon Dioxide BUN Creatinine 0.5 L Glucose 144 H Direct Bilirubin GGT Alkaline Phosphatase 229 H NT-Pro-B Natriuret Pep Albumin 3.1 L Globulin 4.1 H Albumin/Globulin Ratio 0.8 L LDL Cholesterol, Calc Procalcitonin Meds: Medications Acetaminophen (Acetaminophen 325 Mg Tablet) 650 mg PO Q6HP PRN; Protocol PRN Reason: Per Pain Protocol/Fever > 101 Albuterol/Ipratropium (Ipratropium/Albuterol 3 Ml Ampul.Neb) 3 ml NEB Q6HRT [facility] Last Admin: 10/14/21 02:15 Dose: 3 ml Albuterol/Ipratropium (Ipratropium/Albuterol 3 Ml Ampul.Neb) 3 ml NEB Q4HP PRN PRN Reason: Shortness Of Breath Aspirin (Aspirin 81 Mg Tab.Chew) 81 mg PO DAILY [facility] Last Admin: 10/13/21 08:07 Dose: 81 mg Atorvastatin Calcium (Atorvastatin 40 Mg Tablet) 40 mg PO HS [facility] Last Admin: 10/13/21 20:56 Dose: 40 mg Bisoprolol Fumarate (Bisoprolol 5 Mg Tablet) 2.5 mg PO DAILY [facility] Last Admin: 10/13/21 08:07 Dose: 2.5 mg Budesonide (Budesonide 0.5 Mg/2 Ml Ampul.Neb) 0.5 mg NEB Q12 [facility] Last Admin: 10/14/21 03:09 Dose: Not Given Docusate Sodium (Docusate Sodium 100 Mg Capsule) 100 mg PO BID [facility] Last Admin: 10/13/21 20:55 Dose: 100 mg Enoxaparin Sodium (Enoxaparin 40 Mg/0.4 Ml Syringe) 40 mg SQ DAILY [facility] Last Admin: 10/13/21 08:06 Dose: 40 mg Potassium Chloride 40 meq/ (Dextrose) 520 mls @ 130 mls/hr IV UD PRN PRN Reason: Potassium < 3 Magnesium Sulfate (Magnesium Sulfate) 2 gm in 50 mls @ 50 mls/hr IV UD PRN PRN Reason: Magnesium </= 1.6 Ceftriaxone Sodium 2 gm/ (Dextrose) 50 mls @ 100 mls/hr IV Q24H [facility]; Protocol Last Infusion: 10/13/21 10:40 Dose: Infused Azithromycin 500 mg/ Dextrose 250 mls @ 250 mls/hr IV Q24H [facility]; Protocol Stop: 10/14/21 09:59 Last Infusion: 10/13/21 11:30 Dose: Infused Methylprednisolone Sodium Succinate (Methylprednisolone Sod Succ 125 Mg/2 Ml Vial) 40 mg IV Q12 [facility] Last Admin: 10/13/21 20:59 Dose: 40 mg Nortriptyline HCl (Nortriptyline 10 Mg Capsule) 10 mg PO HS [facility] Last Admin: 10/13/21 20:55 Dose: 10 mg Ondansetron HCl (Ondansetron 4 Mg/2 Ml Vial) 4 mg IV Q4HP PRN PRN Reason: Nausea And Vomiting Pantoprazole Sodium (Pantoprazole 40 Mg Tablet) 40 mg PO QAMAC [facility] Last Admin: 10/14/21 07:02 Dose: 40 mg Paroxetine HCl (Paroxetine 20 Mg Tablet) 30 mg PO QHS [facility] Last Admin: 10/13/21 20:55 Dose: 30 mg Polyethylene Glycol (Polyethylene Glycol 3350 17 Gm Packet) 17 gm PO DAILYP PRN PRN Reason: Constipation Potassium Chloride (Potassium Chloride 20 Meq Tablet) 40 meq PO UD PRN PRN Reason: Potssium is 3-3.5 Potassium Chloride (Potassium Chloride 20 Meq Tablet) 40 meq PO UD PRN PRN Reason: Potassium < 3 Senna (Sennosides 1 Tablet) 2 tab PO DAILYP PRN PRN Reason: Constipation Last Admin: 10/13/21 20:55 Dose: 2 tab Sodium Chloride (0.9 % Sodium Chloride 10 Ml Syringe) 10 ml IV Q8 [facility] Last Admin: 10/14/21 05:50 Dose: 10 ml A/P Narrative A/P Narrative: A: *AECOPD (not on home O2)/fibrosis: -rvp neg *PNA (RUL): - *spiculated mass RUL on Chest CT, 15mm, subpleural areas of parenchymal consolidation: *Acute hypoxic respiratory failure: 2/2 above -on 1L NC *CAD w/stents: follows with [facility] cardio -no chest pain and negative troponins, abnormal ekg ST findings discussed with Dr. Alcantara (wheel loader operator) from ED, who had no concerns given negative troponins and pt without chest pain *Tobacco abuse: *GERD: *Depression/anxiety: *Generalized weakness: *Hypotnatremia: P: -steroids(wean), tolerated solumedrol w/o adverse reaction -nebs, IS/Acapella, RT -Wean O2 able -Abx, pending SC. mrsa screen neg -myco pending, -RT to assess for home O2 tomorrow -discussed with rads regarding possible ct-guided biopsy of RUL lesion, given the other extensive lung findings it is recommended to follow up with pulmonology first and defer w/o to such specialist. -cont ASA, start statin(do not see on home med list, but old cardio notes show simvistatin and bisoprolol) -pt/ot -Prescribe rescue inhalers upon d/c -Follow-up with pulmonology outpatient for COPD evaluation PFTs & pulmonary lesions -Follow-up with cardiology outpatient -Smoking cessation counseling minutes -ppx: lovenox DNR Time Spent With Patient Time: Total time spent is greater than 50% in coordination of care (as documented) at patient's floor/unit and/or counseling patient: Total time spent with greater than 50% in coordination of care (as documented) at patient's floor/unit and/or counseling patient:: 25 - 35 minutes QUALITY VTE Deep Vein Thrombosis/Pulmonary Embolism Present on Admission: No
[2021-10-14 07:41] LABS: Band Neutrophils % 10 % (0-10); Lymphocytes % 5 % (15-49); Monocytes % (Manual) 5 % (1-12); Myelocytes % 1 %; Platelet Estimate INCREASED (Normal); RBC Morphology NORMAL (Normal); Reactive Lymphocytes 1 % (0-2); Segmented Neutrophils % 78 % (38-78)
[2021-10-14] MEDS: DOCUSATE SODIUM 100 MG CAPSULE PO SCH ×2 (08:25→21:14)
[2021-10-14] MEDS: BISOPROLOL 5 MG TABLET PO SCH (08:25)
[2021-10-14] MEDS: ASPIRIN 81 MG TAB.CHEW PO SCH (08:25)
[2021-10-14] MEDS: ENOXAPARIN 40 MG/0.4 ML SYRINGE SQ SCH (08:26)
[2021-10-14] MEDS: methylPREDNISolone SOD SUCC 40 MG/ML VIAL IV SCH (08:26)
[2021-10-14] MEDS: cefTRIAXone 2 GM in DEXTROSE 5% IN WATER 50 ML IV SCH (08:26)
[2021-10-14] MEDS: AZITHROMYCIN 500 MG in DEXTROSE 5% IN WATER 250 ML IV SCH (09:57)
[2021-10-14] MEDS: ATORVASTATIN 40 MG TABLET PO SCH (21:13)
[2021-10-14] MEDS: PARoxetine 20 MG TABLET PO SCH (21:13)
[2021-10-14] MEDS: NORTRIPTYLINE 10 MG CAPSULE PO SCH (21:14)
[2021-10-15] MEDS: IPRATROPIUM/ALBUTEROL 3 ML AMPUL.NEB NEB SCH ×3 (01:51→12:54)
[2021-10-15] MEDS: 0.9 % SODIUM CHLORIDE 10 ML SYRINGE IV SCH ×2 (05:17→13:18)
[2021-10-15 06:22] LABS: Hematocrit 36.9 % (34.1-44.9); Hemoglobin 12.1 g/dL (11.2-15.7); Mean Cell Volume 91.1 fL (80.0-100.0); Mean Corpuscular HGB Conc 32.8 g/dL (31.0-36.0); Mean Platelet Volume 9.4 fL (7.4-10.4); Platelet Count 660 K/mcL (140-440); RBC 4.05 M/mcL (3.59-5.38); Red Cell Distribution Width 12.9 % (11.5-14.5); WBC 17.1 K/mcL (4.5-11.0)
[2021-10-15 06:45] LABS: Blood Urea Nitrogen 16 mg/dL (8-23); Calcium 9.3 mg/dL (8.6-10.4); Carbon Dioxide 30 mmol/L (22-30); Chloride 90 mmol/L (96-108); Glomerular Filtration Rate 87; Glucose 99 mg/dL (70-105)
[2021-10-15] MEDS: BUDESONIDE 0.5 MG/2 ML AMPUL.NEB NEB SCH (07:02)
[2021-10-15 07:25] LABS: Band Neutrophils % 5 % (0-10); Lymphocytes % 14 % (15-49); Metamyelocytes % 4 %; Monocytes % (Manual) 9 % (1-12); Myelocytes % 2 %; Platelet Estimate INCREASED (Normal); RBC Morphology NORMAL (Normal); Reactive Lymphocytes 4 % (0-2); Segmented Neutrophils % 62 % (38-78)
[2021-10-15] MEDS: DOCUSATE SODIUM 100 MG CAPSULE PO SCH (08:31)
[2021-10-15] MEDS: PANTOPRAZOLE 40 MG TABLET PO SCH (08:31)
[2021-10-15] MEDS: ASPIRIN 81 MG TAB.CHEW PO SCH (08:31)
[2021-10-15] MEDS: BISOPROLOL 5 MG TABLET PO SCH (08:32)
[2021-10-15] MEDS: methylPREDNISolone SOD SUCC 40 MG/ML VIAL IV SCH (08:32)
[2021-10-15] MEDS: ENOXAPARIN 40 MG/0.4 ML SYRINGE SQ SCH (08:32)
[2021-10-15] MEDS: cefTRIAXone 2 GM in DEXTROSE 5% IN WATER 50 ML IV SCH (11:05)
--- NOTE | 2021-10-15 12:04 | Discharge Summary ---
Discharge Provider Provider IMPORTANT FOLLOW-UP INFORMATION FOR PCP: 1. PFTs 2. CT guided lung bx Patient information: Note initiated : 10/15/21 at 12:03 pm Service Date, if different from initiated Date: [] Patient: Jessica Briceño 71 y/o F admitted on 10/12/21 for Pneumonia. Chief Complaint: [] Date of admission: 10/12/21 20:28 Discharge date: 10/15/21 Primary care physician: Dara Hercules Consults: 10/12/21 Consult to Physician [CONS] Stat Comment: Consulting Provider: Grady Parisi Reason For Exam: Physician to Consult Attending physician on discharge: Jasmit Sarah COURSE Hospital Course Hospital course: Interval history: History of present illness: Ms. Briceño is a 71 year old F Resents the ED with increasing shortness of breath and cough. Patient found to be 85% in the ED on room air. Patient states that Friday she started feeling ill and had was sick to her stomach. She denies recent travel or sick contacts. Over the next couple days she developed a productive cough of yellow sputum and shortness of breath. She been becoming increasingly weak and fatigued and decreasing appetite. She has had fevers and chills. She went to minor care and got several several antibiotics yesterday and has had a dose of each it sounds like. But today she has not felt any better treatments for severely short of breath and coughing thus came to the ED. Patient did have an abnormal EKG with some ST elevation in the inferior leads but had no chest pain. ER physician discussed case with director of quality at [facility] based on the history did not have concerns long as the troponins were unremarkable and troponins were checked in the ED which were negative x2. Looking at old notes she has had some inferior lead ST changes in the past infectious had stents x2. Patient continues to smoke I spent some time counseling her on this. Patient has a history of COPD but does not use inhalers and has never been on oxygen. In the ED a chest x-ray was performed which showed a right upper lobe infiltrate some prominent interstitial markings that were concerning for interstitial edema. The right upper lobe parenchymal density is concerning for either scarring pneumonia or possibly neoplasm and CT chest was recommended which has been ordered. Patient feels wheezy as well. He has diaphoresis at times. Her sister notes that she has been quite wheezy on the phone over the past month. Her sister also notes that patient stopped going on walks with her recently because of shortness of breath. She is found to have a leukocytosis in the ED with a hyponatremia. Lactic acid was unremarkable. Patient has prednisone listed as an allergy and asked her about this and she said some years ago she had headaches and they gave prednisone to her and she had some facial swelling but denied any throat swelling or shortness of breath. 10/13 Patient has continued cough and shortness of breath of the shortness of breath feels little better to her. Leukocytosis resolved today, pending manual differential. Sodium still low today. 10/14 Patient feeling better today. Minimal cough. Denies shortness of breath at rest. She was on 1 L nasal cannula. She did have a bandemia yesterday and thus the reason for the likely leukocytosis today plus steroids as her bandemia improved quite a bit although still borderline upper reference avilez. However given the severe bandemia and worsening leukocytosis today and still requiring oxygen, we will follow-up 1 more night with labs and respiratory status, 10/15: I took over the care of this patient on hospital day #3 at which point she was medically optimized for discharge. She passed her RT home O2 eval and will not require supplemental O2. She was treated for suspected aspiration pn eumonia and possible COPD exacerbation. She will need to follow-up with pulmonology for PFTs and also CT-guided biopsy of her right upper lobe lesion. She will complete a course of Augmentin and prednisone. She will be prescribed albuterol and Advair as well. She should follow-up with her primary care physician within 1 week's time. Discharge diagnosis: Acute hypoxemic respiratory failure, possible COPD, aspiration pneumonia Time Spent with Patient Time attestation: Total time spent providing and/or coordinating discharge services: Time spent: Greater than 30 minutes EXAM Constitutional Vitals: Temp Pulse Resp BP Pulse Ox O2 Del Method O2 Flow Rate 97.6 F 77 16 114/67 92 1 10/15/21 11:40 10/15/21 07:02 10/15/21 11:40 10/15/21 11:40 10/15/21 11:40 10/15/21 11:40 10/15/21 08:00 General appearance: average body habitus Head Head exam: Present atraumatic, normal inspection and normocephalic Eye Eye exam: Present EOMI, normal appearance and PERRL; Absent conjunctival injection ENT ENT exam: Present normal exam; Absent mucous membranes dry Neck Neck exam: Present full ROM; Absent lymphadenopathy Respiratory Respiratory exam: Present normal respiratory exam and CTAB; Absent decreased breath sounds, respiratory distress or wheezes Cardiovascular Cardiovascular exam: Present normal rate and rhythm and RRR; Absent JVD GI/Abdominal GI/Abdominal exam: Present normal bowel sounds and soft; Absent diminished bowel sounds, distended, guarding, mass, rebound or tenderness Neurological Exam Neurological exam: Present alert, CN II-XII intact and oriented X3 Psychiatric Psychiatric exam: Present normal affect and normal mood Skin Skin exam: Present intact and warm; Absent erythema, pallor, petechiae or rash Discharge Data Data Completed and Pending Labs on day of discharge: Labs from last 24 hours 10/15/21 10/15/21 05:33 05:33 WBC 17.1 H RBC 4.05 Hgb 12.1 Hct 36.9 MCV 91.1 MCH 29.9 MCHC 32.8 RDW 12.9 Plt Count 660 H MPV 9.4 Seg Neutrophils % 62 Band Neutrophils % 5 Lymphocytes % 14 L Monocytes % (Manual) 9 Metamyelocytes % 4 Myelocytes % 2 Reactive Lymphocytes 4 H Platelet Estimate Increased A RBC Morphology Normal Sodium 132 L Potassium 3.4 Chloride 90 L Carbon Dioxide 30 Anion Gap 12.0 BUN 16 Creatinine 0.7 GFR Calculation 87 Glucose 99 Calcium 9.3 Preliminary micro results at discharge 10/12/21 21:00 Fungal Smear - Preliminary Sputum source - Induced 10/12/21 21:00 Gram Stain - Preliminary Sputum source - Induced Discharge Plan Patient/Caregiver Discharge Instructions Activity: as per physical therapy Prescriptions: New albuterol sulfate 90 mcg/actuation HFA aerosol inhaler 2 puff inhalation Q6H PRN (Reason: shortness of breath or wheezing) Qty: 6.7 0RF fluticasone propion-salmeterol [Advair Diskus] 250-50 mcg/dose blister with device 1 inh inhalation Q12H Qty: 60 0RF prednisone 20 mg tablet 40 mg PO QDAY Qty: 8 0RF Continued aspirin 81 mg Tablet,Delayed Release (Dr/Ec) 81 mg PO QDAY paroxetine HCl [Paxil] 30 mg Tablet 30 mg PO QHS omeprazole 40 mg Capsule,Delayed Release(Dr/Ec) 40 mg PO QDAY nortriptyline 10 mg capsule 1 cap PO HS amoxicillin-pot clavulanate 875-125 mg tablet 1 tab PO BID Rx Instructions: For 7 days. Discontinued azithromycin 250 mg tablet 1 tab PO DAILY Rx Instructions: Take 2 tablets PO on day 1, then take 1 tablet PO on day 2-5. Follow Up Plan Follow up with: Dara Hercules MD [Primary Care Provider] - Patient Disposition: Home, Self-Care Prognosis: Fair I certify that the patient requires SNF services: No Overall status at discharge: patient is progressing back to baseline Discharge Orders: Discharge Order (Routine); Ordered 10/15/21 Ordered By: Kirk MORENO VTE Deep Vein Thrombosis/Pulmonary Embolism Present on Admission: No
--- NOTE | 2021-10-16 10:12 | EKG ---
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
[2021-10-17 14:36] LABS: M. Pneumoniae IGG 2.06
== END 2021-10-15 14:40 | disposition home or self-care (01) | DRG 177 ==
LOC: ED 10:37 → MEDSUR 20:28
PROVIDERS: ADMIT Internal Medicine; ATTEND Student in an Organized Health Care Education/Training Program